=== PATIENT | male | born 1950 | race Caucasian/White ===

== ENCOUNTER 2018-05-15 23:12 | Inpatient (IN) | payer OTHER ==
[~2018-05-15] VITALS: Ht 167.6 cm; Wt 71.7 kg
[~2018-05-15 23:12] MED LIST: ASPIRIN81 M2 PO; ASPRIMOX 325 M325 MG PO; AUGMENTIN 875875 M1 PO; CITRATE OF MAG296 ML PO; DEPAKOTE PO; FLEXERIL PO; HYDROCODON-ACE1 EACH PO; IRON325 PO; KEPPRA 500 MG500 MG PO; LAMICTAL 25 MG25 M1 PO; LISINOPRIL10 MG PO; LISINOPRIL40 MG PO; MINOCIN100 MG PO; MIRALAX255 GM PO; NORCO 5-325 TA1 EACH PO; VIAGRA100 MG PO; VICODIN ES TAB1 EACH PO; VITAMIN D3400 UNIT PO; ZOCOR PO; ZOFRAN ODT4 MG PO
[2018-05-15 23:30] VITALS: BP 184/94
[2018-05-15] MEDS ORDERED: OMEPRAZOLE20 M2 PO ×2 (23:34)
[2018-05-15] MEDS ORDERED: SIMVASTATIN80 MG PO ×2 (23:34)
[2018-05-15 23:35] LABS: ABSOLUTE BASOPHILS 0.1 thou/uL (0.0-0.2); ABSOLUTE EOSINOPHILS 0.1 thou/uL (0.0-0.7); ABSOLUTE LYMPHOCYTES 1.9 thou/uL (0.8-5.3); ABSOLUTE MONOCYTES 0.7 thou/uL (0.0-1.2); ABSOLUTE NEUTROPHILS 4.8 thou/uL (1.6-8.1); BASOPHILS 0.9 %; EOSINOPHILS 1.1 %; HEMATOCRIT 49.7 % (42.0-52.0); HEMOGLOBIN 17.3 gm/dL (14.0-18.0); LYMPHOCYTES 25.7 %; MCH 30.6 pg (26.0-34.0); MCHC 34.7 g/dL (28.0-37.0); MCV 88.1 fL (80.0-100.0); MONOCYTES 8.7 %; MPV 8.1 fl. (7.2-11.1); NUCLEATED RBCS 0 /100WBC; PLATELET COUNT* 186 thou/uL (150-400); POLYS 63.6 %; RBC 5.65 mil/uL (4.50-6.00); RDW-CV 13.5 % (10.5-14.5); WBC 7.5 thou/uL (4.0-11.0)
[2018-05-15] MEDS ORDERED: OXYBUTYNIN 5 MG5 M2 PO ×2 (23:35)
[2018-05-15] MEDS ORDERED: COZAAR 25 MG TA25 MG PO ×2 (23:35)
[2018-05-15] MEDS ORDERED: LAMOTRIGINE150 MG PO ×2 (23:35)
[2018-05-15 23:56] LABS: CREATININE 1.3 mg/dL (0.6-1.3); POTASSIUM 3.4 mmol/L (3.5-5.1); TROPONIN-I LEVEL 0.16 ng/mL (<0.06)
[2018-05-15 23:58] LABS: ALBUMIN 4.1 g/dL (3.4-5.0); TOTAL PROTEIN 7.3 g/dL (6.4-8.2)
[2018-05-16] VITALS (13 sets, daily range): BP systolic 114–172; BP diastolic 54–133
[2018-05-16 02:35] LABS: APTT 28.5 Seconds (25.0-31.3); INR 1.1; PROTIME 11.3 Seconds (9.20-11.50)
--- NOTE | 2018-05-16 04:14 | NUR ---
TRANSFER FROM ED TO THE FLOOR AT 0115. REPORT RECIEVED AND ASSUMED CARE AT 0115. VITAL SIGNS STABLE. PT HAS RIGHT SHOULDER PAIN AND PRN PAIN MEDS GIVEN ORDERED. PT HAD ELEVATED TROP AND HEPARIN PROTOCOL STARTED PER DOCTORS ORDERS. PT UP ADLIB WITH CANE. ASSESSMENT COMPLETED, DISCUSSED PLAN OF CARE, PT UNDERSTANDS. BED LOCKED AND CALL LIGHT WITHIN REACH. FALL PRECAUTIONS IN PLACE. HOURLY ROUNDING DONE AND ALL NEEDS MET. NURSING WILL CONTINUE TO MONITOR.
--- NOTE | 2018-05-16 10:00 | NUR ---
Pt is A&O. Resides at home with his . Normally independent, completes cooking, cleaning and driving. Pt has a walker, cane and scooter at home that he can use for mobility. No hx of HH or SNF. Hx of falls. Pt open to HH at al. Pt scheduled to have a cath today. Goal is home at al, to arrange HH. Following.
[2018-05-16 11:16] LABS: CHOLESTEROL 131 mg/dL (<200); HDL CHOLESTEROL 47 mg/dL (>40); LDL CHOLESTEROL 75 mg/dL (<100); TC:HDL 2.8 Ratio (Not establshd); TRIGLYCERIDE 48 mg/dL (<150); VLDL 10 mg/dL (<40)
[2018-05-16 11:20] LABS: SERUM ASSESSMENT Clear
--- NOTE | 2018-05-16 17:41 | EKG ---
[place] [address] ELECTROCARDIOGRAM REPORT Name: EDU PERDUE Room: [address] ADM IN M.R.#: [id number] Admission: 05/16/18 Attend Phys: Edu Lott MD Discharge: Date of : 46 Report #: [id number] THIS REPORT FOR: //name// [facility] ED Test Date: 2018-05-15 Test Time: 23:42:08 Pat Name: EDU PERDUE Department: Room: [facility] Gender: M Sales Store Checker: Rashi MOSES : 1950 Requested By: Brad Javier Order Number: [id number] MD: Torsten Dillon Measurements Intervals [place] Rate: 73 P: 65 MA: 151 QRS: 59 QRSD: 89 T: 38 QT: 440 QTc: 485 Interpretive Statements Sinus rhythm Minimal ST depression, diffuse leads Borderline prolonged QT interval Baseline wander in lead(s) I,II,aVR Compared to ECG 05/18/2014 18:59:13 ST (T wave) deviation now present Incomplete right bundle-branch block no longer present Electronically Signed On 05-16-2018 17:41:06 CDT by Torsten Dillon [email or web address] <ELECTRONICALLY SIGNED> By: Torsten Dillon MD, FACC 05/16/18 1741 [id number] [id number] Torsten Dillon MD, FACC /EPI
--- NOTE | 2018-05-16 19:48 | NUR ---
RECEIVED REPORT FROM [facility] NURSE. ASSUMED PT CARE AROUDN 0730. PT A&O X4. VSS. AM ASSESSMENT AND VITALS COMPLETED CHARTED. FEDERAL MEDIATOR IN PLACE TRACING SR WITH NO CHANGES THIS SHIFT. PT COMPLETED CARDIAC CATH THIS SHIFT - 2 STENTS PLACED. FAMILY AT BEDSIDE. MEDS PER EMAR. IV'S INTACT. VOIDING PER URINAL. FALL PRECAUTIONS IN PLACE. HOURLY ROUNDING. CALL LIGHT IS WITHIN REACH. PT AWARE TO LIE FLAT TILL 11PM.
[2018-05-17] VITALS (7 sets, daily range): BP systolic 113–148; BP diastolic 50–88
[2018-05-17 05:10] LABS: HEMATOCRIT 45.6 % (42.0-52.0); HEMOGLOBIN 15.9 gm/dL (14.0-18.0); MCH 30.5 pg (26.0-34.0); MCHC 34.8 g/dL (28.0-37.0); MCV 87.8 fL (80.0-100.0); MPV 8.5 fl. (7.2-11.1); RBC 5.19 mil/uL (4.50-6.00); RDW-CV 13.4 % (10.5-14.5); WBC 6.6 thou/uL (4.0-11.0)
[2018-05-17 05:50] LABS: ALBUMIN 3.3 g/dL (3.4-5.0); CALCIUM 8.1 mg/dL (8.5-10.1); CREATININE 1.1 mg/dL (0.6-1.3); POTASSIUM 4.2 mmol/L (3.5-5.1); TOTAL BILIRUBIN 1.2 mg/dL (<0.1-1.0); TOTAL PROTEIN 6.1 g/dL (6.4-8.2)
[2018-05-17 05:54] LABS: TROPONIN-I LEVEL 3.78 ng/mL (<0.06)
--- NOTE | 2018-05-17 08:32 | EKG ---
[place] [address] ELECTROCARDIOGRAM REPORT Name: EDU PERDUE Room: [address] ADM IN M.R.#: [id number] Admission: 05/16/18 Attend Phys: Edu Lott MD Discharge: Date of : 46 Report #: [id number] THIS REPORT FOR: //name// [facility] Test Date: 2018-05-16 Test Time: 21:06:00 Pat Name: EDU PERDUE Department: Room: [address] Gender: M Senior Service Aide: HOWARD : 1950 Requested By: Hitesh Worley Order Number: [id number] Jimbo MD: Torsten Dillon Measurements Intervals [place] Rate: 60 P: 66 OR: 175 QRS: 66 QRSD: 86 T: 16 QT: 448 QTc: 448 Interpretive Statements Sinus rhythm Abnormal R-wave progression, early transition Borderline T wave abnormalities Compared to ECG 05/15/2018 23:42:08 T-wave abnormality now present ST (T wave) deviation no longer present Electronically Signed On 05-17-2018 8:32:00 CDT by Torsten Dillon [email or web address] <ELECTRONICALLY SIGNED> By: Torsten Dillon MD, FACC 05/17/18 0832 05 05 Torsten Dillon MD, FAC /EPI
--- NOTE | 2018-05-17 08:36 | EKG ---
[place] [address] ELECTROCARDIOGRAM REPORT Name: EDU PERDUE Room: [address] ADM IN M.R.#: [id number] Admission: 05/16/18 Attend Phys: Edu Lott MD Discharge: Date of : 46 Report #: [id number] THIS REPORT FOR: //name// [facility] Test Date: 2018-05-17 Test Time: 05:18:00 Pat Name: EDU PERDUE Department: Room: [address] Gender: M Gas Mask Assembler: LASHONDA : 1950 Requested By: Hitesh Worley Order Number: [id number] Jimbo MD: Torsten Dillon Measurements Intervals [place] Rate: 51 P: 63 MS: 157 QRS: 53 QRSD: 82 T: QT: 694 QTc: 640 Interpretive Statements Sinus rhythm Borderline abnrm T, anterolateral leads Prolonged QT interval Compared to ECG 05/15/2018 23:42:08 Myocardial infarct finding now present ST (T wave) deviation no longer present Electronically Signed On 05-17-2018 8:36:33 CDT by Torsten Dillon [email or web address] <ELECTRONICALLY SIGNED> By: Torsten Dillon MD, FAC 05/17/18 0836 Torsten Dillon MD, [facility] /EPI
--- NOTE | 2018-05-17 08:43 | NUR ---
PATIENT RESTING IN BED. NITRO GIVEN FOR STATED CHEST PAIN BUT STATES HIS PAIN BECAME WORSE. CARDIO NOTIFIED, ORDERS RECEIVED AND NOTED. BED ALARM ON. CALL LIGHT WITHIN REACH, ENCOURAGED TO CALL FOR NEEDS.
--- NOTE | 2018-05-17 14:04 | CARD ---
[address] [address] CARDIAC CATH REPORT Name: EDU PERDUE Deana Room: [facility] IN .R.#: [id number] Admission: 05/16/18 Attend Phys: Edu Lott MD Discharge: Date of : 46 Report #: [id number] THIS REPORT FOR: //name// APPROVED REPORT Study performed: 05/16/2018 16:10:21 Patient Details Patient Status: In-Patient Room #: 214 The patient is a 68 year-old male Event Personnel Hitesh Worley Infrastructure Director, Caroline Frausto, Marcello Rodriguez Hintermaier, Elena RN Taker Out, Britta Reid Taker Out, Ana Laura Botello RN Taker Out Procedures Performed Art Access - R femoral artery* Left Heart Cath w/or w/o Coronaries [id number] [facility] [address] Place w/wo Plasty Single [place] [id number] P[address]LO Place w/wo Plasty Single LAD [id number] Indication Non-STEMI Risk Factors Peripheral Vascular Disease, Hypercholesterolemia, Hypertension Admission/Lab Medications/Medications given during procedure Aspirin, Platelet Aff. Inhib., Angiomax bolus and infusion Procedure Narrative The patient was brought electively to the Cardiac Catheterization Laboratory and was prepped and draped in a sterile manner. The right femoral was infiltrated with 2% Lidocaine subcutaneous anesthesia. A 6fr Ultimum Sheath sheath was inserted into the right femoral artery. Coronary angiography was performed using coronary diagnostic catheters. The right coronary system was accessed and visualized with a 6fr JR 4 catheter. The left coronary system was accessed and visualized with a JL 3.5 6fr catheter. The left ventricle was accessed and visualized with a Pigtail catheter. Left ventricular/Aortic Valve gradient assessed via catheter pullback. Left ventriculogram was performed in SANDERSON projection. Pre-demployment femoral angiogram was performed . Closure device was deployed with a 6 Fr Angioseal STS 6Fr. The patient [place] [address] CARDIAC CATH REPORT Name: EDU PERDUE Room: [address] IN [facility]#: [id number] Admission: 05/16/18 Attend Phys: Edu Lott MD Discharge: Date of : 46 Report #: [id number] there were no complications associated with the procedure. There was no hematoma. Intraoperative Conscious Sedation Sedation start time: 16:45 Case end Time: 18:10 Fentanyl 25 mcg Versed 1 mg Fluoro Time: 25.8 minutes Dose: DAP 822991 cGycm2 2828.38 mGy Contrast Type and Amount: Visipaque 400 ml Coronary Angiography The patient's coronary anatomy is right dominant. Diagnostic Cath Left Main 30% distal narrowing LAD 80% ostial LAD stenosis with irregular 80% narrowing throughout the distal proximal and entire mid segment of the left anterior descending coronary artery Circumflex 95% stenosis of the first marginal branch with 75% stenosis of the second marginal branch; there was 40% proximal circumflex narrowing Right Coronary 30% proximal and mid vessel narrowing with 90% narrowing at the ostium of the posterior descending branch; this was a dominant vessel Left Ventriculography The left ventricle is normal in size with contractility. The left ventricular ejection fraction is estimated to be 60%. Left ventricular wall motion abnormalities are present. There is no mitral insufficiency. Mild anterior hypokinesis is noted IVUS Findings NC Trek RX 2.0 X 12 Hemodynamics The aortic pressure is 166/76 mmHg with a mean of mmHg. The left ventricular pressure is 163/2 mmHg with a mean of mmHg. The left ventricular end diastolic pressure is 20 mmHg. There was no gradient across the aortic valve upon pullback. PCI Technique Lesion Anticoagulation was achieved with Angiomax Drip. Patient was preloaded with Angiomax IV 11 mg per kg. Percutaneous coronary intervention was performed on the [place] [address] CARDIAC CATH REPORT Name: EDU PERDUE Deana Room: [address]#: [id number] Admission: 05/16/18 Attend Phys: Edu Lott MD Discharge: Date of : 46 Report #: [id number] segment. The lesion stenosis prior to intervention was 95% with MAR 3 flow. A 6FR XB LAD 3.0 100CM Guide Catheter was used to engage the LCA ostium. A IG: BMW 190cm Interventional Guidewire was used to cross the lesion. BALLOON DILATION A Balloon catheter Mini Trek RX 2.0 X 8 was inserted and inflated up to 6.00atm for 11seconds. Additional Inflation: 8.00atm for 13seconds. Additional Inflation: 8.00atm for 9seconds. STENT DEPLOYMENT A drug-eluting stent [place] RX Stent 2.0X12mm was inserted and inflated up to 10atm for 15seconds. Final angiography reveals 20 % stenosis with MAR 3 flow. COMMENTS The circumflex and specifically the first marginal heavily calcified requiring significant lesion preparation and multiple wires for stent deployment BALLOON DILATION A Balloon catheter NC Trek RX 2.0 X 12 was inserted and inflated up to 14.00atm for 21seconds. Additional Inflation: 15.00atm for 13seconds. STENT DEPLOYMENT A drug-eluting stent [place] RX Stent 2.0X12mm was inserted and inflated up to 8.00atm for 12seconds. Additional Inflation: 8.00atm for 13seconds. PCI Technique Lesion 2 Percutaneous Coronary Intervention was performed on the proximal left anterior descending artery segment. The lesion stenosis prior to intervention was 80% with MAR 3 flow. A 6FR XB LAD 3.0 100CM Guide Catheter was used to engage the ostium. A IG: [place] 190cm Interventional Guidewire was used to cross the lesion. Stent Deployment A drug-eluting stent [place] RX Stent 2.5X8mm was inserted and inflated up to 14.00atm for 12seconds. Additional Inflation: 17.00atm for 10seconds. Final angiography reveals 0 % stenosis with MAR [address] [address] CARDIAC CATH REPORT Name: EDU PERDUE Room: [address] IN M.R.#: [id number] Admission: 05/16/18 Attend Phys: Edu Lott MD Discharge: Date of : 46 Report #: [id number] Conclusion #1 significant multivessel coronary artery disease characterized by the following: A 30% distal left vein coronary artery narrowing B 80% ostial LAD stenosis with 80% tubular narrowing throughout the distal proximal and entire midsection of the left anterior descending coronary artery C 40% proximal circumflex proximal narrowing with 95% stenosis of the first marginal branch and 75% stenosis of the second marginal branch D dominant right coronary artery 30% proximal and mid vessel narrowing with 90% stenosis of the proximal posterior descending branch #2 normal global left ventricular systolic function, estimate ejection fraction being 60% with mild anterior hypokinesis #3 modest elevation of left ventricle end-diastolic pressure at rest #4 successful percutaneous coronary intervention with deployment of drug-eluting stent at site of 95% calcified first marginal stenosis with 20% residual narrowing #5 successful percutaneous coronary intervention with deployment of drug-eluting stent at site of 80% ostial LAD stenosis with 0% residual narrowing and MAR-3 flow to the distal vessel Recommendations Cardiac Risk Reduction Program Aggressive Medical Therapy Medications Administered Aspirin (any) [place] [address] CARDIAC CATH REPORT Name: EDU PERDUE Room: [address]#: [id number] Admission: 05/16/18 Attend Phys: Edu Lott MD Discharge: Date of : 46 Report #: [id number] Diagnostic Cath Approved by: Hitesh Worley MD Date/Time: 05/17/2018 14:01:17 <ELECTRONICALLY SIGNED> By: Hitesh Worley MD, FACC 05/17/18 1403 140 1403Hitesh Worley MD, FACC /INF
--- NOTE | 2018-05-17 18:21 | NUR ---
PATIENT PROGRESSED WELL TOWARDS GOALS. NO CHEST PAIN THROUGHOUT THIS SHIFT. DR BELTRAN THOUGHT THE PATIENT NEEDED ANOTHER INTERVENTION FOR HIS HEART, PATIENT AGREEDED TO STAY AND WILL BE GOING FOR HEART CATH TOMORROW MORNING. ALL QUESTIONS ANSWERED. PATIENT TO BE NPO AFTER MIDNIGHT FOR HEART CATH IN THE AM TOMORROW. PATIENT AWARE. VITALS REMAIN WITHIN NORMAL LIMITS. FLUIDS REMAIN RUNNING. RIGHT GROIN SITE C/D/I. DENIES ANY PAIN, NAUSEA OR SHORTNESS OF AIR AT THIS TIME. BED IN LOWEST POSITION, CALL LIGHT IN REACH, FISH AND GAME WARDEN IN PLACE.
[2018-05-18] VITALS (9 sets, daily range): BP systolic 109–138; BP diastolic 58–87
--- NOTE | 2018-05-18 05:50 | NUR ---
VITALS WNL. SEE MAR. SEE CHARTING. FALL PRECAUTIONS IN PLACE. HOURLY ROUNDING FOR SAFETY.
--- NOTE | 2018-05-18 09:23 | NUR ---
ASSUMED CARE OF PT THIS AM AROUND 0715- LEAK PATCHER IN PLACE ORDERED, TRACING SB- UPON ASSESSMENT PT NOTED TO BE RESTING IN BED SIDE CHAIR, WATCHING TV- PT A&O X4, [place]- CONTINENT OF BOWEL AND BLADDER- SBA WITH TRANSFERS FOR SAFETY- LCTA, DIMINISHED IN BASES- RESP EVEN AND UN-LABORED- VSS, O2 SAT 97% ON RA-ABD SOFT/ROUND/NON-TENDER, BS X4 QUADS- LAST BM REPORTED 05/17/18- PT CURRNELTY NPO FOR PLANNED HEART CATH THIS AM-IV NOTED TO RIGHT FA INTACT, IVF INFUSSING PRESCIBED- PT RATES PAIN 2/10 TO RUE THIS AM, DENIES NEED FOR PAIN MEDICATIONS AT THIS TIME- PT NOTED TO BE TAKEN TO CHECKER PRODUCT DESIGN THIS AM AT 0915- ALL NEEDS MET AT THIS TIME-WCTM
--- NOTE | 2018-05-18 16:20 | NUR ---
PT CURRENLTY RESTING IN BED, AT SIDE- COMPANY LABORER IN PLACE ORDERED, TRACING SB- IV TO RIGHT FA INTACT, IVF INFUSSING PRESCIBED- CATH PERFORMED THIS SHIFT ORDERED- PT OFF UNIT FROM 0915 TILL 1300- REPORT RECIEVIED PER GRADY RN IN TOOL SHARPENER-PT REPORTED TO HAVE RECIEVIED 1 STENT TO LAD, WITH ACCESS PER RIGHT GROIN- VS UPON RETURNING TO UNIT NOTED TO BE 97.6 20 109/67 59 935 ON RA- RIGHT GROIN NOTED WITH SCANT DRAINGE, REPORTED TO BE NOTED IN TOOL SHARPENER PRIOR TO TRANSFER; WITH NO HEMATOMA- VS PER PROTOCOL IN PLACE ORDERED- INSTRUCED BED REST WITH IMMOBILIZATION OF RLE- PT ABLE TO COME OFF BED REST AROUND 1630- PT REPORTS DISCOMFOORT TO CATH SITE- FAIR PO INTAKE NOTED WITH LUNCH- CALL LIGHT AND PERSONAL BELONGINGS WITH IN REACH- ALL NEEDS MET AT THIS TIME-WCTM
--- NOTE | 2018-05-18 16:51 | EKG ---
[place] [address] ELECTROCARDIOGRAM REPORT Name: EDU PERDUE Room: [address] ADM IN .R.#: [id number] Admission: 05/16/18 Attend Phys: Edu Lott MD Discharge: Date of : 46 Report #: [id number] THIS REPORT FOR: //name// [facility] Test Date: 2018-05-18 Test Time: 11:04:36 Pat Name: EDU PERDUE Department: Room: [facility] Gender: M Digital Photographic Printer: : 1950 Requested By: Hitesh Worley Order Number: [id number] Jimbo MD: Hitesh Worley Measurements Intervals [place] Rate: 79 P: 61 TN: 130 QRS: 40 QRSD: 84 T: 136 QT: 424 QTc: 487 Interpretive Statements Sinus rhythm Posterior infarct, old possible Nonspecific T abnormalities, lateral leads Compared to ECG 05/17/2018 05:18:00 Myocardial infarct finding now present T-wave abnormality now present Prolonged QT interval no longer present Electronically Signed On 05-18-2018 16:51:39 CDT by Hitesh Worley [email or web address] <ELECTRONICALLY SIGNED> By: Hitesh Worley MD, [facility] 05/18/18 1651 1104 1104 Hitesh Worley MD, [facility] /EPI
[2018-05-19 04:00] VITALS: BP 144/60
[2018-05-19 05:01] LABS: HEMATOCRIT 38.2 % (42.0-52.0); MCH 30.6 pg (26.0-34.0); MCHC 34.8 g/dL (28.0-37.0); MCV 88.1 fL (80.0-100.0); MPV 8.6 fl. (7.2-11.1); RBC 4.34 mil/uL (4.50-6.00); RDW-CV 13.5 % (10.5-14.5); WBC 9.6 thou/uL (4.0-11.0)
[2018-05-19 05:19] LABS: CALCIUM 8.3 mg/dL (8.5-10.1); CREATININE 1.2 mg/dL (0.6-1.3); POTASSIUM 3.8 mmol/L (3.5-5.1); TOTAL BILIRUBIN 0.8 mg/dL (<0.1-1.0); TOTAL PROTEIN 5.9 g/dL (6.4-8.2)
[2018-05-19 05:21] LABS: TROPONIN-I LEVEL 2.03 ng/mL (<0.06)
[2018-05-19 05:27] LABS: HEMOGLOBIN 13.3 gm/dL (14.0-18.0)
--- NOTE | 2018-05-19 06:22 | NUR ---
VITALS WNL. SEE MAR. SEE CHARTING. FALL PRECAUTIONS IN PLACE. HOURLY ROUNDING FOR SAFETY. APPROX 0400 PT HAD BACK PAIN GIVEN MEDICATION WITH RILIEF NOTED.
[2018-05-19 08:04] VITALS: BP 133/59
--- NOTE | 2018-05-19 09:11 | NUR ---
ASSUMED CARE OF PT THIS AM AROUND 0715- AIRPLANE COVERER IN PLACE ORDERED, TRACING SR- UPON ASSESSMENT PT NOTED TO BE RESTING IN BED, WATCHING TV-PT A&O X4, [place]- CONTINENT OF BOWEL AND BLADDER- SBA WITH CANE FOR TRANSFERS- DIMINISHED LUNG SOUNDS, RESP EVEN AND UN-LABORED- VSS, O2 SAT 97% ON RA- ABD SOFT/ROUND/NON-TENDER, BS X 4 QUADS- LAST BM REPORTED 05/18/18- GOOD PO INTAKE NOTED THIS AM WITH BREAKFAST- IV NOTED TO RIGHT FA AND RIGHT AC INTACT, IVF INFUSSING PRESCIBED- RIGHT GROIN NOTED WITH SCANT DRIED BLOOD TO DRESSING, NO HEMATOMA NOTED PAIN REPORTED 06/08 TO GROIN/BACK AREA THIS AM- CALL LIGHT AND PERSONAL BELONGINGS WITH IN REACH- HOURLY ROUNDS IN PLACE R/T SAFETY/NEEDS- ALL NEEDS MET AT THIS TIME-WCTM
[2018-05-19 09:35] VITALS: BP 144/64
[2018-05-19 10:30] VITALS: BP 144/64
[2018-05-19] MEDS ORDERED: BRILINTA90 MG PO ×2 (11:54)
[2018-05-19] MEDS ORDERED: METOPROLOL SUCC25 M1 PO ×2 (11:54)
[2018-05-19] MEDS ORDERED: NITROGLYCERIN0.4 MG SUBLING ×2 (12:13)
[2018-05-19 12:38] VITALS: BP 132/63
--- NOTE | 2018-05-19 13:05 | NUR ---
ORDERS RECIEVIED FOR OK TO D/C HOME PER AND THIS SHIFT- IV TO LEFT AC D/C'D ALONG WITH BREAST PULLER PRIOR TO D/C- D/C TEACHING/EDUCATION/NEEDED FOLLOW UPS COMMUNICATED TO PT AND AT TIME OF D/C- ALL QUESTIONS AND CONCERNS ADDRESSED AT TIME OF D/C- WRITTEN EDUCATION ALONG WITH SCRIPTS PROVIDED TO PT AT TIME OF D/C- BELONGINGS PACKED AND ACCOUNTED FOR PER PT - PT CURRNELTY FINISHING LUNCH AND THEN TO GET DRESSED FOR D/C- ALL NEEDS MET AT THIS TIME-WCTM
--- NOTE | 2018-05-19 15:07 | EKG ---
[place] [address] ELECTROCARDIOGRAM REPORT Name: NETTEEDU Deana Room: [address] IN .R.#: [id number] Admission: 05/16/18 Attend Phys: Edu Lott MD Discharge: 05/19/18 Date of : 46 Report #: [id number] THIS REPORT FOR: //name// [facility] Test Date: 2018-05-19 Test Time: 02:35:44 Pat Name: EDU PERDUE Department: Room: [facility] Gender: M Line Maintenance: : 1950 Requested By: Hitesh Wroley Order Number: [id number] Jimbo MD: Hitesh Worley Measurements Intervals [place] Rate: 71 P: 63 [place]: 138 QRS: 53 QRSD: 87 T: 224 QT: 376 QTc: 409 Interpretive Statements Sinus rhythm RSR' in V1 or V2, right VCD Nonspecific T abnormalities, diffuse leads Compared to ECG 05/18/2018 11:04:36 RSR' in V1 or V2 now present Myocardial infarct finding no longer present T-wave abnormality still present Electronically Signed On 05-19-2018 15:06:50 CDT by Hitesh Worley [email or web address] <ELECTRONICALLY SIGNED> By: Hitesh Worley MD, [facility] 05/19/18 1506 0235 0235 Hitesh Worley MD, [facility] /EPI
--- NOTE | 2018-05-20 11:29 | CARD ---
[address] [address] CARDIAC CATH REPORT Name: EDU PERDUE Deana Room: [address] IN ..#: [id number] Admission: 05/16/18 Attend Phys: Edu Lott MD Discharge: 05/19/18 Date of : 46 Report #: [id number] THIS REPORT FOR: //name// APPROVED REPORT Study performed: 05/18/2018 08:47:20 Patient Details Patient Status: In-Patient Room #: 214 The patient is a 68 year-old male Event Personnel Hitesh Worley Machine Ii Engraver, Ana Laura Botello RN Drain Cleaner Plumber, Caroline FraustoIS Monitor, Gonzalo Sun (R) Scrub Procedures Performed Art Access - R femoral artery* Left Heart Cath w/or w/o Coronaries [id number] [facility] Place w/wo Plasty Single LAD [id number] Indication Non-STEMI Risk Factors Hypercholesterolemia, Hypertension Admission/Lab Medications/Medications given during procedure Platelet Aff. Inhib., Angiomax bolus and infusion Procedure Narrative The patient was brought electively to the Cardiac Catheterization Laboratory and was prepped and draped in a sterile manner. The right femoral was infiltrated with 2% Lidocaine subcutaneous anesthesia. A [place] 6 FR sheath was inserted into the right femoral artery. Coronary angiography was performed using coronary diagnostic catheters. The left coronary system was accessed and visualized with a 6FR XB LAD 3.0 100CM catheter. The left ventricle was accessed and visualized with a [place] 6 FR catheter. Left ventricular/Aortic Valve gradient assessed via catheter pullback. Pre-demployment femoral angiogram was performed . Closure device was deployed with a 6 Fr Angioseal STS 6Fr. The patient tolerated the procedure well and there were no complications associated with the procedure. [place] [address] CARDIAC CATH REPORT Name: EDU PERDUE Room: [address]#: [id number] Admission: 05/16/18 Attend Phys: Edu Lott MD Discharge: 05/19/18 Date of : 46 Report #: [id number] Intraoperative Conscious Sedation Sedation start time: 09:32 Case end Time: 10:21 Fentanyl 100 mcg Versed 4 mg Fluoro Time: 18.8 minutes Dose: DAP [id number] cGycm2 1952.78 mGy Contrast Type and Amount: Visipaque 350 ml Diagnostic Cath Left Main 0% narrowing LAD Widely patent ostial proximal LAD stent with 80% diffuse irregular mid LAD stenosis Circumflex Widely patent first marginal stent Right Coronary Dominant vessel with 40% mid vessel narrowing and 80-90% ostial posterior descending branch stenosis Left Ventriculography Left Ventriculography was not performed. IVUS Findings NC Trek RX 2.25x12 Hemodynamics The aortic pressure is 132/56 mmHg with a mean of mmHg. The left ventricular pressure is 160/4 mmHg with a mean of mmHg. The left ventricular end diastolic pressure is 10 mmHg. There was no gradient across the aortic valve upon pullback. Pullback from the left ventricle to the aorta revealed no gradient across the aortic valve. PCI Technique Lesion Anticoagulation was achieved with Angiomax Drip. Patient was preloaded with Angiomax IV 10.5 mg per kg. Percutaneous coronary intervention was performed on the mid left anterior descending artery segment. The lesion stenosis prior to intervention was 80% with MAR 3 flow. A 6FR XB LAD 3.0 100CM Guide Catheter was used to engage the ostium. A IG: BMW 190cm Interventional Guidewire was used to cross the lesion. BALLOON DILATION A Balloon catheter Mini Trek RX 2.0 X 15 was inserted and inflated up to 12.00atm for 12seconds. Additional Inflation: 10.00atm for 10seconds. Additional Inflation: 12.00atm for 11seconds[place] [address] CARDIAC CATH REPORT Name: EDU PERDUE Deana Room: [address]#: [id number] Admission: 05/16/18 Attend Phys: Edu Lott MD Discharge: 05/19/18 Date of : 46 Report #: [id number] A drug-eluting stent Nathen RX Stent 2.0X30mm, 2.25x34 was inserted and inflated up to 12.00atm for 12seconds. Additional Inflation: 14.00atm for 10seconds. Final angiography reveals 10 % stenosis with MAR 3 flow. BALLOON DILATION A Balloon catheter NC Trek RX 2.25x12 was inserted and inflated up to 14.00atm for 8seconds. Additional Inflation: 16.00atm for 9seconds. Additional Inflation: 15.00atm for 6seconds. PCI Technique Lesion 2 Percutaneous coronary intervention was performed on the mid left anterior descending artery segment. Stent Deployment A drug-eluting stent Nathen RX Stent 2.77W76fw was inserted and inflated up to 14atm for 10seconds. Additional Inflation: 14atm for 14seconds. Additional Inflation: 15atm for 6seconds. Conclusion #1 significant multivessel coronary artery disease characterized by the following: A widely patent ostial proximal LAD stent with diffuse tubular 80% irregular mid LAD stenosis B widely patent first marginal stent in the nondominant circumflex C dominant right coronary artery of 40% mid vessel narrowing 80-90% ostial proximal posterior descending branch stenosis #2 normal left-sided hemodynamics study #3 successful percutaneous coronary intervention with deployment of sequential drug-eluting stents at the site of tubular 80% mid LAD stenosis with 10% residual narrowing and MAR-3 flow to the distal vessel Recommendations Cardiac Risk Reduction Program Aggressive Medical Therapy Medications [place] [address] CARDIAC CATH REPORT Name: EDU PERDUE Room: [address]#: [id number] Admission: 05/16/18 Attend Phys: Edu Lott MD Discharge: 05/19/18 Date of : 46 Report #: [id number] Diagnostic Cath Approved by: Hitesh Worley MD Date/Time: 05/20/2018 11:28:22 <ELECTRONICALLY SIGNED> By: Hitesh Worley MD, [facility] 05/20/18 1129 1129 [id number] Worley MD, FAC /INF
== END 2018-05-19 13:20 | disposition home or self-care (01) | DRG 246 ==
LOC: M.ERS 23:12 → M.TBA-ER 05-16 00:12 → M.2W 05-16 00:12
PROVIDERS: Emergency Medicine Emergency Medical Services; Internal Medicine; Registered Nurse; ADMIT Internal Medicine
PROC: B215YZZ Fluoroscopy of Left Heart using Other Contrast (ICD-10-PCS; 2018-05-16)
PROC: B211YZZ Fluoroscopy of Multiple Coronary Arteries using Other Contrast (ICD-10-PCS; 2018-05-16)
PROC: 4A023N7 Measurement of Cardiac Sampling and Pressure, Left Heart, Percutaneous Approach (ICD-10-PCS; 2018-05-16)
PROC: B41JYZZ Fluoroscopy of Other Lower Arteries using Other Contrast (ICD-10-PCS; 2018-05-16)
PROC: 027135Z Dilation of Coronary Artery, Two Arteries with Two Drug-eluting Intraluminal Devices, Percutaneous Approach (ICD-10-PCS; 2018-05-16)
PROC: 027035Z Dilation of Coronary Artery, One Artery with Two Drug-eluting Intraluminal Devices, Percutaneous Approach (ICD-10-PCS; principal; 2018-05-18)
PROC: B211YZZ Fluoroscopy of Multiple Coronary Arteries using Other Contrast (ICD-10-PCS; principal; 2018-05-18)
PROC: 4A023N7 Measurement of Cardiac Sampling and Pressure, Left Heart, Percutaneous Approach (ICD-10-PCS; principal; 2018-05-18)
PROC: B41JYZZ Fluoroscopy of Other Lower Arteries using Other Contrast (ICD-10-PCS; principal; 2018-05-18)
DX: I21.4 Non-ST elevation (NSTEMI) myocardial infarction (principal); I50.33 Acute on chronic diastolic (congestive) heart failure; E78.5 Hyperlipidemia, unspecified; J44.9 Chronic obstructive pulmonary disease, unspecified; G40.909 Epilepsy, unspecified, not intractable, without status epilepticus; G89.29 Other chronic pain; M54.9 Dorsalgia, unspecified; M25.50 Pain in unspecified joint; R33.9 Retention of urine, unspecified; I11.0 Hypertensive heart disease with heart failure; K21.9 Gastro-esophageal reflux disease without esophagitis; Z88.6 Allergy status to analgesic agent; Z88.8 Allergy status to other drugs, medicaments and biological substances; Z79.82 Long term (current) use of aspirin; Z79.899 Other long term (current) drug therapy; Z82.49 Family history of ischemic heart disease and other diseases of the circulatory system; Z86.73 Personal history of transient ischemic attack (TIA), and cerebral infarction without residual deficits

== ENCOUNTER 2018-05-22 10:05 | Emergency (ER) | payer OTHER ==
[~2018-05-22] VITALS: Ht 167.6 cm; Wt 69.0 kg
[~2018-05-22 10:05] MED LIST changes: +BRILINTA90 MG PO; +COZAAR 25 MG TA25 MG PO; +LAMOTRIGINE150 MG PO; +METOPROLOL SUCC25 M1 PO; +NITROGLYCERIN0.4 MG SUBLING; +OMEPRAZOLE20 M2 PO; +OXYBUTYNIN 5 MG5 M2 PO; +SIMVASTATIN80 MG PO
[2018-05-22 11:11] LABS: ABSOLUTE EOSINOPHILS 0.1 thou/uL (0.0-0.7); ABSOLUTE LYMPHOCYTES 0.8 thou/uL (0.8-5.3); ABSOLUTE MONOCYTES 0.6 thou/uL (0.0-1.2); ABSOLUTE NEUTROPHILS 4.6 thou/uL (1.6-8.1); BASOPHILS 0.4 %; EOSINOPHILS 1.2 %; HEMOGLOBIN 13.4 gm/dL (14.0-18.0); LYMPHOCYTES 12.7 %; MCH 31.1 pg (26.0-34.0); MCHC 35.2 g/dL (28.0-37.0); MCV 88.4 fL (80.0-100.0); MONOCYTES 9.5 %; MPV 8.4 fl. (7.2-11.1); NUCLEATED RBCS 0 /100WBC; PLATELET COUNT* 231 thou/uL (150-400); POLYS 76.2 %; RDW-CV 13.5 % (10.5-14.5); WBC 6.1 thou/uL (4.0-11.0)
[2018-05-22 11:26] LABS: CALCIUM 9.3 mg/dL (8.5-10.1); CREATININE 1.3 mg/dL (0.6-1.3); POTASSIUM 4.1 mmol/L (3.5-5.1)
[2018-05-22 12:50] VITALS: BP 149/58
== END 2018-05-22 12:51 | disposition home or self-care (01) ==
LOC: M.ERS 10:05
PROVIDERS: Personal Emergency Response Attendant
DX: R10.31 Right lower quadrant pain (principal); J44.9 Chronic obstructive pulmonary disease, unspecified; E78.5 Hyperlipidemia, unspecified; Z96.641 Presence of right artificial hip joint; Z88.5 Allergy status to narcotic agent; Z88.6 Allergy status to analgesic agent; Z88.8 Allergy status to other drugs, medicaments and biological substances

== ENCOUNTER → 2018-05-27 | Outpatient (CLI) | payer OTHER | LOC: M.ULTRA 09:43 | DX: R10.31 Right lower quadrant pain (principal); Z88.8 Allergy status to other drugs, medicaments and biological substances ==

== ENCOUNTER 2018-09-06 16:52 | Emergency (ER) | payer OTHER ==
[~2018-09-06] VITALS: Ht 167.6 cm; Wt 56.7 kg
[2018-09-06 18:17] VITALS: BP 128/78
== END 2018-09-06 18:19 | disposition home or self-care (01) ==
LOC: M.ERS 16:52
DX: S51.811A Laceration without foreign body of right forearm, initial encounter (principal); E78.5 Hyperlipidemia, unspecified; J44.9 Chronic obstructive pulmonary disease, unspecified; Z96.641 Presence of right artificial hip joint; Z88.6 Allergy status to analgesic agent; Z88.5 Allergy status to narcotic agent; Z88.8 Allergy status to other drugs, medicaments and biological substances; W22.8XXA Striking against or struck by other objects, initial encounter; Y93.89 Activity, other specified; Y92.89 Other specified places as the place of occurrence of the external cause; Y99.8 Other external cause status

== ENCOUNTER → 2019-04-21 | Outpatient (CLI) | payer OTHER ==
--- NOTE | 2019-04-21 17:27 | CARDNUC ---
[place] [address] CARDIAC NUCLEAR IMAGING REPORT Name: EDU PERDUE Room: [facility]#: [id number] Admission: 04/21/19 Attend Phys: Ranjit Bryant Discharge: Date of : 46 Date of Service: 04/21/19 1726 Report #: [id number] THIS REPORT FOR: cc: VJ DE OLIVEIRA MD Physician not on staff Torsten Dillon MD [facility] ~ APPROVED REPORT Study performed: 04/21/2019 14:16:45 Exam: Nuclear Stress Test Indication: routine Patient Location: Out-Patient Stress Tech: Alma Jules Stress Nurse: Mary Hastings RN Ht: 5 ft 5 in Wt: 137 lbs BSA: 1.68 m2 BMI: 22.79 Medical History Medical History: CAD s/p AK, Diabetes, HTN, Hyperlipidemia, Seizures, Stroke/TIA Medications: asa-81, metoprolol, simvastatin, ticagrelor Allergies: lisinopril, oxycodone, terazosin, clopidogrel, ibuprofen Cardiac Risk Factors: age, hyperlipidemia, hypertension, pvd, family hx Previous Cardiac Procedures: pci Exercise History: Sedentary Meds Held (24 hrs): metoprolol Stress Test Details Stress Test: Pharmacologic stress testing performed using 0.4 mg of regadenoson per 5 mL given IV over 10 seconds. Reason for pharmacologic stress test: physical limitation. HR Resting HR: 74 bpm Max Heart Rate (APMHR): 149 bpm Max HR Achieved: 100 bpm Target HR (85% APMHR): 126 bpm % of APMHR: 67 Recovery HR: 94 bpm BP Resting BP: 158/111 [place] [address] CARDIAC NUCLEAR IMAGING REPORT Name: EDU PERDUE Room: [facility]#: [id number] Admission: 04/21/19 Attend Phys: Ranjit Bryant Discharge: Date of : 46 Date of Service: 04/21/19 1726 Report #: [id number] Max BP: 173/89 mmHg ECG Resting ECG: Sinus Rhythm Stress ECG: Sinus Rhythm ST Change: None Arrhythmia: None Recovery ECG: Sinus Rhythm Recovery ST Change: None Recovery Arrhythmia: None Clinical Reason for Termination: Completed protocol Exercise duration: 0 min sec Exercise capacity: 1 METs The patient tolerated Lexiscan infusion without significant cardiac symptoms. Nurse Comments pt in wheelchair unable to walk on treadmill Stress ECG Conclusion The baseline 12-lead EKG shows sinus rhythm without significant ST segment or T wave abnormality. EKGs obtained during and post Lexiscan infusion show sinus rhythm with no significant ST segment or T wave changes when compared to baseline. There were no stress-induced arrhythmias. NM EXAM: Myocardial Perfusion REST/STRESS Resting Data Rest SPECT myocardial perfusion imaging was performed in supine position 30 minutes following the intravenous injection of 10.9 mCi of Tc-99m Sestamibi. Time of rest injection: 12:30 The images were gated to evaluate regional wall motion and calculate left ventricular ejection fraction. Administration Route: IV Administration Site: Left AC Pharmacologic Stress Pharmacologic stress test was performed by injecting Regadenoson 0.4 mg IV push followed by the intravenous injection of 33.8 mCi of Tc-99m Sestamibi. Time of stress injection: 14:20 Administration Route: [place] [address] CARDIAC NUCLEAR IMAGING REPORT Name: EDU PERDUE Room: [facility]#: [id number] Admission: 04/21/19 Attend Phys: Ranjit Bryant Discharge: Date of : 46 Date of Service: 04/21/19 1726 Report #: [id number] Administration Site: Left AC Heart Rate at time of stress injection: 100 bpm. Gated Stress SPECT was performed 45 minutes after stress injection. The images were gated to evaluate regional wall motion and calculate left ventricular ejection fraction. Prone imaging was performed. Study Quality Study: Good Artifact: No artifact Study Data At rest, the left ventricular ejection fraction was 69%.. Post stress, the left ventricular ejection was CTA%.. TID = 1.04. Perfusion Perfusion images obtained at rest and post Lexiscan stress show uniform uptake of the radioisotope throughout the myocardium without defect. Wall Motion Normal left ventricular wall motion. Nuclear Conclusion ECG Findings: negative for ischemia Clinical Findings: negative for ischemia Nuclear Findings: negative for ischemia Exercise Capacity: not assessed Left Ventricular Function: normal Risk Study: low Myocardial perfusion images show no defect to suggest infarct or ischemia. Left ventricular systolic function appears normal on gated studies. This is a low risk study. <Conclusion> The baseline 12-lead EKG shows sinus rhythm without significant ST segment or T wave abnormality. EKGs obtained during and post Lexiscan infusion show sinus rhythm with no significant ST segment or T wave changes when compared to baseline. There were no stress-induced arrhythmias. <ELECTRONICALLY SIGNED> By: Torsten Dillon MD, FACC 04/21/191725 25 25 Torsten Dillon MD, FACC /INF
== END ==
LOC: M.NUC 11-18 08:54
DX: I25.10 Atherosclerotic heart disease of native coronary artery without angina pectoris (principal); I21.4 Non-ST elevation (NSTEMI) myocardial infarction; I25.2 Old myocardial infarction; E11.9 Type 2 diabetes mellitus without complications; E78.5 Hyperlipidemia, unspecified; Z95.5 Presence of coronary angioplasty implant and graft; Z79.899 Other long term (current) drug therapy

== ENCOUNTER 2019-09-20 20:43 | Emergency (ER) | payer OTHER ==
[~2019-09-20] VITALS: Ht 167.6 cm; Wt 61.7 kg
[2019-09-20 21:37] LABS: ABSOLUTE EOSINOPHILS 0.1 thou/uL (0.0-0.7); ABSOLUTE LYMPHOCYTES 1.4 thou/uL (0.8-5.3); ABSOLUTE MONOCYTES 0.5 thou/uL (0.0-1.2); ABSOLUTE NEUTROPHILS 3.1 thou/uL (1.6-8.1); BASOPHILS 0.5 %; EOSINOPHILS 1.5 %; HEMATOCRIT 44.9 % (42.0-52.0); HEMOGLOBIN 15.8 gm/dL (14.0-18.0); LYMPHOCYTES 27.9 %; MCH 31.5 pg (26.0-34.0); MCHC 35.2 g/dL (28.0-37.0); MCV 89.7 fL (80.0-100.0); MONOCYTES 8.8 %; MPV 8.5 fl. (7.2-11.1); NUCLEATED RBCS 0 /100WBC; PLATELET COUNT* 174 thou/uL (150-400); POLYS 61.3 %; RBC 5.01 mil/uL (4.50-6.00); RDW-CV 13.8 % (10.5-14.5); WBC 5.1 thou/uL (4.0-11.0)
[2019-09-20 21:41] LABS: CALCIUM 8.1 mg/dL (8.5-10.1); CREATININE 1.3 mg/dL (0.6-1.3); POTASSIUM 3.9 mmol/L (3.5-5.1)
[2019-09-20 21:46] LABS: ALBUMIN 3.7 g/dL (3.4-5.0); TOTAL BILIRUBIN 0.5 mg/dL (<0.1-1.0); TOTAL PROTEIN 6.4 g/dL (6.4-8.2)
[2019-09-20 23:01] LABS: URINE BILIRUBIN NEGATIVE (Negative); URINE BLOOD NEGATIVE (Negative); URINE CLARITY CLEAR; URINE COLOR YELLOW; URINE GLUCOSE-RANDOM NEGATIVE (Negative); URINE KETONES NEGATIVE (Negative); URINE LEUKOCYTES-REFLEX NEGATIVE (Negative); URINE NITRITE-REFLEX NEGATIVE (Negative); URINE PROTEIN NEGATIVE (Negative); URINE UROBILINOGEN 0.2 E.U./dl (0.2-1.0)
[2019-09-21 01:05] VITALS: BP 161/86
== END 2019-09-21 01:05 | disposition home or self-care (01) ==
LOC: M.ERS 20:43
PROVIDERS: Personal Emergency Response Attendant
DX: R10.84 Generalized abdominal pain (principal); J44.9 Chronic obstructive pulmonary disease, unspecified; E78.5 Hyperlipidemia, unspecified; Z88.6 Allergy status to analgesic agent; Z88.5 Allergy status to narcotic agent; Z88.8 Allergy status to other drugs, medicaments and biological substances

== ENCOUNTER 2020-10-07 12:59 | Emergency (ER) | payer OTHER ==
[~2020-10-07] VITALS: Ht 167.6 cm; Wt 62.1 kg
[2020-10-07 15:15] VITALS: BP 136/70
--- NOTE | 2020-10-08 10:01 | EKG ---
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: MS : 1950 Requested By: Brittany Duarte Order Number: [id number] MD: Kael Guevara Measurements Intervals [place] Rate: 56 P: 59 AL: 160 QRS: 62 QRSD: 86 T: 47 QT: 419 QTc: 405 Interpretive Statements Sinus rhythm RSR' in V1 or V2, probably normal variant Compared to ECG 05/19/2018 02:35:44 T-wave abnormality no longer present Electronically Signed On 10-08-2020 10:01:10 CDT by Kael Guevara [email or web address] <ELECTRONICALLY SIGNED> By: Kael Guevara MD, FAC 10/08/20 1001 1312 1312 Kael Guevara MD, [facility] /EPI
== END 2020-10-07 15:15 | disposition home or self-care (01) ==
LOC: M.ERS 12:59
DX: M54.9 Dorsalgia, unspecified (principal); J44.9 Chronic obstructive pulmonary disease, unspecified; E78.5 Hyperlipidemia, unspecified; Z88.8 Allergy status to other drugs, medicaments and biological substances; Z88.6 Allergy status to analgesic agent

== ENCOUNTER 2020-10-19 09:22 | Emergency (ER) | payer OTHER ==
[~2020-10-19] VITALS: Ht 170.2 cm; Wt 64.9 kg
--- NOTE | 2020-10-19 09:42 | EKG ---
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1950 Requested By: Brad Javier Order Number: [id number] MD: Torsten Dillon Measurements Intervals [place] Rate: 55 P: 73 [place]: 141 QRS: 72 QRSD: 85 T: 55 QT: 448 QTc: 429 Interpretive Statements Sinus rhythm RSR' in V1 or V2, probably normal variant Borderline T abnormalities, anterior leads Compared to ECG 10/07/2020 13:12:42 T-wave abnormality now present Electronically Signed On 10-19-2020 9:42:22 CDT by Torsten Dillon [email or web address] <ELECTRONICALLY SIGNED> By: Torsten Dillon MD, [facility] 10/19/2042 0 0 Torsten Dillon MD, [facility] /EPI
[2020-10-19 09:51] LABS: ABSOLUTE MONOCYTES 0.7 thou/uL (0.0-1.2); ABSOLUTE NEUTROPHILS 6.8 thou/uL (1.6-8.1); BASOPHILS 0.5 %; HEMATOCRIT 45.5 % (42.0-52.0); HEMOGLOBIN 15.3 gm/dL (14.0-18.0); LYMPHOCYTES 11.8 %; MCH 30.5 pg (26.0-34.0); MCHC 33.6 g/dL (28.0-37.0); MCV 90.6 fL (80.0-100.0); MONOCYTES 7.8 %; MPV 8.4 fl. (7.2-11.1); NUCLEATED RBCS 0 /100WBC; PLATELET COUNT* 203 thou/uL (150-400); POLYS 79.9 %; RBC 5.02 mil/uL (4.50-6.00); RDW-CV 13.2 % (10.5-14.5); WBC 8.5 thou/uL (4.0-11.0)
[2020-10-19] MEDS ORDERED: BACLOFEN 10MG T10 MG PO (09:53)
[2020-10-19] MEDS ORDERED: LAMICTAL100 MG PO (09:54)
[2020-10-19] MEDS ORDERED: LOSARTAN-HCTZ1 EAC3 PO (09:55)
[2020-10-19] MEDS ORDERED: TOPROL XL100 MG PO (09:56)
[2020-10-19] MEDS ORDERED: ASA81BEC PO (09:58)
[2020-10-19] MEDS ORDERED: ASPIR-TRIN325 MG PO (09:58)
[2020-10-19] MEDS ORDERED: TYLENOL325 MG PO (09:58)
[2020-10-19] MEDS ORDERED: CHOLECALCIFEROL1 GM PO (09:59)
[2020-10-19 10:00] LABS: CALCIUM 8.8 mg/dL (8.5-10.1); CREATININE 1.2 mg/dL (0.6-1.3)
[2020-10-19] MEDS ORDERED: TRAZODONE HCL50 MG PO (10:01)
[2020-10-19 10:05] LABS: ALBUMIN 3.5 g/dL (3.4-5.0); TOTAL BILIRUBIN 0.5 mg/dL (<0.1-1.0); TOTAL PROTEIN 6.3 g/dL (6.4-8.2)
[2020-10-19 12:17] VITALS: BP 110/63
== END 2020-10-19 12:20 | disposition home or self-care (01) ==
LOC: M.ERS 09:22
PROVIDERS: Emergency Medicine Emergency Medical Services
DX: R55 Syncope and collapse (principal); R11.0 Nausea; J44.9 Chronic obstructive pulmonary disease, unspecified; E78.5 Hyperlipidemia, unspecified; M25.50 Pain in unspecified joint; G40.909 Epilepsy, unspecified, not intractable, without status epilepticus; I25.2 Old myocardial infarction; Z79.899 Other long term (current) drug therapy; Z79.82 Long term (current) use of aspirin; Z88.8 Allergy status to other drugs, medicaments and biological substances; Z88.6 Allergy status to analgesic agent

== ENCOUNTER 2020-11-13 14:41 | Emergency (ER) | payer OTHER ==
[~2020-11-13] VITALS: Ht 170.2 cm; Wt 75.8 kg
[~2020-11-13 14:41] MED LIST changes: +ASA81BEC PO; +ASPIR-TRIN325 MG PO; +BACLOFEN 10MG T10 MG PO; +CHOLECALCIFEROL1 GM PO; +LAMICTAL100 MG PO; +LOSARTAN-HCTZ1 EAC3 PO; +TOPROL XL100 MG PO; +TRAZODONE HCL50 MG PO; +TYLENOL325 MG PO
--- NOTE | 2020-11-13 15:10 | EKG ---
[place] [address] ELECTROCARDIOGRAM REPORT Name: EDU PERDUE Room: [facility].#: [id number] Admission: 11/13/20 Attend Phys: Discharge: Date of : 46 Date of Service: 11/13/20 1441 Report #: [id number] THIS REPORT FOR: //name// [facility] ED Test Date: 2020-11-13 Test Time: 14:41:46 Pat Name: EDU PERDUE Department: Room: Gender: M Sales Assistant Displays: : 1950 Requested By: Krishna Gallardo Order Number: [id number] MD: Kael Guevara Measurements Intervals [place] Rate: 73 P: 79 IN: 156 QRS: 65 QRSD: 88 T: 45 QT: 402 QTc: 443 Interpretive Statements Sinus rhythm Atrial premature complex Abnormal R-wave progression, early transition Compared to ECG 10/19/2020 09:31:43 Atrial premature complex(es) now present T-wave abnormality no longer present rate has increased Electronically Signed On 11-13-2020 15:10:10 CDT by Kael Guevara [email or web address] <ELECTRONICALLY SIGNED> By: Kael Guevara MD, [facility] 11/13/20 1510 1441 1441 Kael Guevara MD, [facility] /EPI
[2020-11-13 15:15] LABS: ABSOLUTE EOSINOPHILS 0.1 thou/uL (0.0-0.7); ABSOLUTE LYMPHOCYTES 1.3 thou/uL (0.8-5.3); ABSOLUTE MONOCYTES 0.4 thou/uL (0.0-1.2); ABSOLUTE NEUTROPHILS 2.1 thou/uL (1.6-8.1); BASOPHILS 0.5 %; EOSINOPHILS 2.2 %; HEMOGLOBIN 16.8 gm/dL (14.0-18.0); LYMPHOCYTES 33.5 %; MCH 31.3 pg (26.0-34.0); MCHC 35.1 g/dL (28.0-37.0); MCV 89.1 fL (80.0-100.0); MONOCYTES 9.5 %; MPV 7.9 fl. (7.2-11.1); NUCLEATED RBCS 0 /100WBC; PLATELET COUNT* 166 thou/uL (150-400); POLYS 54.3 %; RBC 5.38 mil/uL (4.50-6.00); RDW-CV 14.2 % (10.5-14.5); WBC 3.9 thou/uL (4.0-11.0)
[2020-11-13 15:24] LABS: CALCIUM 8.6 mg/dL (8.5-10.1); CREATININE 1.1 mg/dL (0.6-1.3); POTASSIUM 3.9 mmol/L (3.5-5.1)
[2020-11-13 15:29] LABS: ALBUMIN 3.9 g/dL (3.4-5.0); TOTAL BILIRUBIN 0.8 mg/dL (<0.1-1.0); TOTAL PROTEIN 6.9 g/dL (6.4-8.2)
[2020-11-13 16:04] VITALS: BP 169/92
== END 2020-11-13 16:05 | disposition home or self-care (01) ==
LOC: M.ERS 14:41
PROVIDERS: Family Medicine
DX: R53.1 Weakness (principal); R47.82 Fluency disorder in conditions classified elsewhere; M54.9 Dorsalgia, unspecified; J44.9 Chronic obstructive pulmonary disease, unspecified; E78.5 Hyperlipidemia, unspecified; M25.50 Pain in unspecified joint; G40.909 Epilepsy, unspecified, not intractable, without status epilepticus; I25.2 Old myocardial infarction; Z96.641 Presence of right artificial hip joint; Z79.899 Other long term (current) drug therapy; Z79.82 Long term (current) use of aspirin; Z88.8 Allergy status to other drugs, medicaments and biological substances; Z88.6 Allergy status to analgesic agent

== ENCOUNTER 2021-04-04 12:21 | Inpatient (IN) | payer OTHER ==
[2021-04-04] VITALS (16 sets, daily range): BP systolic 114–144; BP diastolic 54–84
[~2021-04-04] VITALS: Ht 165.1 cm; Wt 70.3 kg
[2021-04-04] MEDS ORDERED: ATORVASTATIN CA80 MG PO (12:27)
[2021-04-04 13:51] LABS: ABSOLUTE LYMPHOCYTES 1.8 thou/uL (0.8-5.3); ABSOLUTE MONOCYTES 0.8 thou/uL (0.0-1.2); ABSOLUTE NEUTROPHILS 9.9 thou/uL (1.6-8.1); BASOPHILS 0.3 %; EOSINOPHILS 0.1 %; HEMATOCRIT 53.6 % (42.0-52.0); LYMPHOCYTES 14.4 %; MCH 29.3 pg (26.0-34.0); MCHC 33.6 g/dL (28.0-37.0); MCV 87.2 fL (80.0-100.0); MONOCYTES 6.5 %; MPV 8.4 fl. (7.2-11.1); NUCLEATED RBCS 0 /100WBC; PLATELET COUNT* 213 thou/uL (150-400); POLYS 78.7 %; RBC 6.15 mil/uL (4.50-6.00); RDW-CV 14.7 % (10.5-14.5); WBC 12.6 thou/uL (4.0-11.0)
[2021-04-04 14:03] LABS: CALCIUM 10.1 mg/dL (8.5-10.1); CREATININE 1.9 mg/dL (0.6-1.3); POTASSIUM 3.5 mmol/L (3.5-5.1)
[2021-04-04 14:14] LABS: ALBUMIN 4.5 g/dL (3.4-5.0); DIRECT BILIRUBIN 0.2 mg/dL (<0.1-0.3); TOTAL PROTEIN 7.7 g/dL (6.4-8.2)
--- NOTE | 2021-04-04 14:20 | EKG ---
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: LION : 1950 Requested By: Osito Kim Order Number: [id number] MD: Kael Guevara Measurements Intervals [place] Rate: 65 P: 77 CT: 166 QRS: 63 QRSD: 121 T: -6 QT: 490 QTc: 510 Interpretive Statements Sinus rhythm Atrial premature complex Left atrial enlargement IVCD, consider atypical RBBB Nonspecific ST depression ST elevation, consider lateral injury Compared to ECG 11/13/2020 14:41:46 Atrial abnormality now present ST (T wave) deviation now present Myocardial infarct finding now present Electronically Signed On 04-04-2021 14:20:12 PROPULSION ENGINEER by Kael Guevara [email or web address] <ELECTRONICALLY SIGNED> By: Kael Guevara MD, FAC 04/04/21 1420 1238 1238 Kael Guevara MD, FAC /EPI
[2021-04-05] VITALS: BP 132/63
[2021-04-05 04:00] VITALS: BP 124/70
[2021-04-05 05:43] LABS: HEMATOCRIT 44.1 % (42.0-52.0); MCH 29.2 pg (26.0-34.0); MCHC 33.7 g/dL (28.0-37.0); MCV 86.6 fL (80.0-100.0); MPV 8.3 fl. (7.2-11.1); RBC 5.09 mil/uL (4.50-6.00); RDW-CV 14.4 % (10.5-14.5); WBC 6.6 thou/uL (4.0-11.0)
--- NOTE | 2021-04-05 06:00 | NUR ---
PT VOICED NO CONCERNS THIS SHIFT. DENIES CHEST PAIN. UP WITH WALKER TO BATHROOM WITH STANDBY ASSIST. HOURLY ROUNDING COMPLETED. FALL PRECAUTIONS IN PLACE. SUPERVISOR TELEPHONE INFORMATION TRACING SR/SB. EKG DONE THIS AM PER ROUTINE ORDER.
[2021-04-05 06:01] LABS: HEMOGLOBIN 14.9 gm/dL (14.0-18.0)
[2021-04-05 06:15] LABS: CREATININE 1.3 mg/dL (0.6-1.3); POTASSIUM 3.4 mmol/L (3.5-5.1)
[2021-04-05 08:36] VITALS: BP 141/66
[2021-04-05 11:00] VITALS: BP 108/60
--- NOTE | 2021-04-05 12:14 | EKG ---
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: : 1950 Requested By: Kael Guevara Order Number: [id number] MD: Torsten Dillon Measurements Intervals [place] Rate: 66 P: 71 [place]: 169 QRS: 62 QRSD: 120 T: 29 QT: 450 QTc: 472 Interpretive Statements Sinus rhythm IVCD, consider atypical RBBB Compared to ECG 04/04/2021 12:38:44 Atrial premature complex(es) no longer present Atrial abnormality no longer present ST (T wave) deviation no longer present Myocardial infarct finding no longer present Electronically Signed On 04-05-2021 12:13:57 CRUTCH MAKER by Torsten Dillon [email or web address] <ELECTRONICALLY SIGNED> By: Torsten Dillon MD, FACC 04/05/21 1213 1846 1846 Torsten Dillon MD, FAC /EPI
--- NOTE | 2021-04-05 12:16 | EKG ---
[place] [address] ELECTROCARDIOGRAM REPORT Name: EDU PERDUE Room: [address] ADM IN M.R.#: [id number] Admission: 04/04/21 Attend Phys: Osvaldo Hagen Discharge: Date of : 46 Date of Service: 04/05/2132 Report #: [id number] THIS REPORT FOR: //name// [facility] Test Date: 2021-04-05 Test Time: 06:32:18 Pat Name: EDU PERDUE Department: Room: [facility] Gender: M Hole Digger Operator: [id number] : 1950 Requested By: Kael Guevara Order Number: [id number] MD: Torsten Dillon Measurements Intervals [place] Rate: 59 P: 52 SC: 165 QRS: 47 QRSD: 124 T: 22 QT: 475 QTc: 471 Interpretive Statements Sinus rhythm Right bundle branch block Compared to ECG 04/04/2021 18:46:35 No significant changes Electronically Signed On 04-05-2021 12:15:53 SECOND MATE by Torsten Dillon [email or web address] <ELECTRONICALLY SIGNED> By: Torsten Dillon MD, [facility] 04/05/21 1215 0632 0632 Torsten Dillon MD, [facility] /EPI
[2021-04-05 14:53] VITALS: BP 108/60
--- NOTE | 2021-04-07 12:55 | CARD ---
[address] [address] CARDIAC CATH REPORT Name: EDU PERDUE Room: [address] IN M.R.#: [id number] Admission: 04/04/21 Attend Phys: Ranjit Enamorado Discharge: 04/05/21 Date of : 46 Report #: [id number] THIS REPORT FOR: cc: Kris Keating MD, Ram N. MD Blick,Kael Quintero MD [facility] ~ APPROVED REPORT Study performed: 04/04/2021 14:49:07 Patient Details Patient Status: ED Room #: 14 The patient is a 71 year-old male Event Personnel Mayito Mcnally RTR Monitor, Britta Conn ScrubNancy Sujita RN RN, Kael Guevara Propulsion Engineer Procedures Performed Left Heart Cath w/or w/o Coronaries [id number] [facility] Place w/wo Plasty Addl BR OM [address] w/wo Plasty Single CIRC [id number] Hemostasis with Hemoband Indication Abnormal ECG, Chest pain Risk Factors Cerebrovascular Disease, Hypercholesterolemia, Coronary Artery Disease Previous Procedures/Diagnoses Previous CVAPrevious PCI Admission/Lab Medications/Medications given during procedure Glycoprotein IllbIlla Inhibitors, Heparin Unfract., Lidocaine Subcut 4 ml, Nitroglycerin IA 200 mcg, Verapamil IA 1.5 mg, Heparin IV 3500 units, Aggrastat IV 7 mcg per min, Fentanyl IV 25 mcg, Nitroglycerin IC 200 mcg, Midazolam (Versed) IV 1 mg, Ticagrelor PO 180 mg, Heparin IV 1000 units Procedure Narrative The patient was brought urgently to the Cardiac Catheterization Laboratory and was prepped and draped in [place] [address] CARDIAC CATH REPORT Name: EDU PERDUE Room: [address]#: [id number] Admission: 04/04/21 Attend Phys: Ranjit Enamorado Discharge: 04/05/21 Date of : 46 Report #: [id number] wrist was infiltrated with 2% Lidocaine subcutaneous anesthesia. IV conscious sedation was used throughout procedure with appropriate monitoring and was performed in the presence of a registered nurse who was an independent trained observer other than the physician performing the procedure. A Slender Glidesheath sheath was inserted into the right radial artery. Coronary angiography was performed using coronary diagnostic catheters. The right coronary system was accessed and visualized with a Diagnostic JR4 6Fr catheter. The left coronary system was accessed and visualized with a Diagnostic JL4 6Fr catheter. The left ventricle was accessed and visualized with a Diagnostic JR4 6Fr catheter. Left ventricular/Aortic Valve gradient assessed via catheter pullback. Closure device was deployed with a 6 Fr vascband. The patient tolerated the procedure well and there were no complications associated with the procedure. There was no hematoma. Intraoperative Conscious Sedation Sedation start time: 1520 Case end Time: 1608 Fentanyl 50.0 mcg Versed 1 mg Fluoro Time: 10.5 minutes Dose: DAP 98795 cGycm2 605.10 mGy Contrast Type and Amount: Visipaque 150 mL Coronary Angiography The patient's coronary anatomy is right dominant. Diagnostic Cath Left Main 30% distal stenosis LAD proximal stent had 0% restenosis. The distal LAD was a small vessel and had two 90% stenoses noted. Circumflex 80% proximal stenosis just prior to the takeoff of the first marginal artery. OM1 medium sized vessel with a proximal stent that had a 40% restenosis. OM2 small vessel with a 90% proximal stenosis Right Coronary 50% proximal stenosis R PDA small vessel with a 90% ostial stenosis Left Ventriculography Left Ventriculography was not performed. Hemodynamics The aortic pressure is 130/55 mmHg with a mean of 90 [place] [address] CARDIAC CATH REPORT Name: EDU PERDUE Room: [address]#: [id number] Admission: 04/04/21 Attend Phys: Ranjit Enamorado Discharge: 04/05/21 Date of : 46 Report #: [id number] ventricular pressure is 136/10 mmHg with a mean of mmHg. The left ventricular end diastolic pressure is 12 mmHg. There was no gradient across the aortic valve upon pullback. Pullback from the left ventricle to the aorta revealed no gradient across the aortic valve. PCI Technique Lesion Anticoagulation was achieved with Heparin. bolus of IV aggrastat given Percutaneous coronary intervention was performed on the proximal circumflex artery segment. The lesion stenosis prior to intervention was 80% with MAR 3 flow. A 6Fr XB 3.5 Guide Catheter was used to engage the Left ostium. A IG: BMW 190cm Interventional Guidewire was used to cross the lesion. BALLOON DILATION A Balloon catheter Euphora SC 2.0x12mm was inserted and inflated up to 16.00atm for 10seconds. Repeat angiography revealed the following post-dilatation results: 40% stenosis. STENT DEPLOYMENT A drug-eluting stent Delmont RX Stent 3.0X15mm was inserted and inflated up to 7.00atm for 16seconds. Repeat angiography revealed the following post-stent deployment results: 0% stenosis. Additional Inflation: 7.00atm for 8seconds. Additional Inflation: 9.00atm for 16seconds. Final angiography reveals 0 % stenosis with MAR 3 flow. PCI Technique Lesion 2 Percutaneous Coronary Intervention was performed on the second obtuse marginal branch segment. Percutaneous coronary intervention was performed on the second obtuse marginal branch segment. The lesion stenosis prior to intervention was 90% with MAR 3 flow. A 6Fr XB 3.5 Guide Catheter was used to engage the Left main ostium. A IG: BMW 190cm Interventional Guidewire was used to cross the lesion. Balloon Dilation A Balloon catheter Euphora SC 2.0x12mm was inserted and inflated up to 8.00atm for 15seconds. Repeat angiography revealed the following post-dilatation results: 30% stenosis. Additional Inflation: 8.00atm for 15seconds. Stent Deployment A drug-eluting stent Delmont RX Stent 2.69P19ho was inserted and inflated up to 7.00atm for 16seconds. [place] [address] CARDIAC CATH REPORT Name: EDU PERDUE Room: [facility] IN [place]#: [id number] Admission: 04/04/21 Attend Phys: Ranjit Enamorado Discharge: 04/05/21 Date of : 46 Report #: [id number] following post-stent deployment results: 0% stenosis. Additional Inflation: 9.00atm for 13seconds. Stenosis was noted at the end of the stent after placement that resolved after the patient was given 200 mcg. of IC Nitroglycerin, suggesting that the stenosis represented spasm after placement of the stent. Final angiography reveals 0 % stenosis with MAR 3 flow. Conclusion 1. no restenosis of the stent in the proximal LAD, although there were two 90% stenoses noted in the distal LAD near the apex, which was a small artery. 2. no restenosis of the stent in the first marginal artery. 3. 80% proximal stenosis of the circumfles artery. 4. 90% stenosis of the 3rd marginal artery of the circumflex. 5. successful placement of 2 drug eluting stents in the circumflex artery. Recommendations Cardiac Rehabilitation Referral Aggressive Medical Therapy Medications Administered Ticagrelor <ELECTRONICALLY SIGNED> By: Kael Guevara MD, FACC 04/07/21 1255 1255 [id number] Guevara MD, FACC /INF
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
== END 2021-04-05 15:55 | disposition home or self-care (01) | DRG 246 ==
LOC: M.ERS 12:21 → M.TBA-ER 14:46 → M.2W 18:44
PROVIDERS: Emergency Medicine; Internal Medicine Cardiovascular Disease; ADMIT Internal Medicine; ATTEND Internal Medicine
PROC: 027035Z Dilation of Coronary Artery, One Artery with Two Drug-eluting Intraluminal Devices, Percutaneous Approach (ICD-10-PCS; principal; 2021-04-04)
PROC: B211YZZ Fluoroscopy of Multiple Coronary Arteries using Other Contrast (ICD-10-PCS; principal; 2021-04-04)
PROC: 4A023N7 Measurement of Cardiac Sampling and Pressure, Left Heart, Percutaneous Approach (ICD-10-PCS; principal; 2021-04-04)
DX: I21.4 Non-ST elevation (NSTEMI) myocardial infarction (principal); J96.01 Acute respiratory failure with hypoxia; J44.9 Chronic obstructive pulmonary disease, unspecified; E78.5 Hyperlipidemia, unspecified; E86.0 Dehydration; I10 Essential (primary) hypertension; M54.9 Dorsalgia, unspecified; G89.29 Other chronic pain; I25.10 Atherosclerotic heart disease of native coronary artery without angina pectoris; Z20.822 Contact with and (suspected) exposure to COVID-19; I25.2 Old myocardial infarction; Z88.6 Allergy status to analgesic agent; Z88.8 Allergy status to other drugs, medicaments and biological substances; Z82.49 Family history of ischemic heart disease and other diseases of the circulatory system; Z86.73 Personal history of transient ischemic attack (TIA), and cerebral infarction without residual deficits; Z86.711 Personal history of pulmonary embolism